=== PATIENT | male | born 1975 | race Caucasian/White ===

== ENCOUNTER 2017-01-13 18:02 | Emergency (ER) | payer SELFPAY ==
[2017-01-13] MEDS ORDERED: ZESTRIL PO ONE (18:46)
[2017-01-13] MEDS ORDERED: APRESOLINE PO ONE (18:46)
[2017-01-13] MEDS ORDERED: NORMODYNE PO ONE (18:47)
--- NOTE | 2017-01-13 18:47 | Emergency Department Report ---
ED General Adult HPI - General Chief complaint: High BP Stated complaint: BLADDER/BLOOD PRESSURE Time Seen by Provider: 01/13/17 18:45 Source: patient Mode of arrival: Ambulatory Limitations: No Limitations - History of Present Illness Initial comments: Patient is a 41-year-old male past medical history of hypertension who presents with urinary frequency. Patient states that he has been urinating a lot for the last couple days usually at nighttime. He denies that he is in any pain. He has been out of his high blood pressure medications for the past 2 weeks. He recently moved to [place]. Nothing makes his symptoms better sleeping makes his urinary urgency worse. It isn't associated with any known symptoms. He has no dysuria. No blood in his urine no nausea or vomiting. - Related Data Previous Rx's Medication Instructions Recorded Last Taken Type Carvedilol [Coreg] 25 mg PO BID #60 tablet 01/13/17 Unknown Rx Clonidine HCl [Catapres] 0.3 mg PO QDAY #30 tablet 01/13/17 Unknown Rx Lisinopril [Zestril] 40 mg PO QDAY #30 tablet 01/13/17 Unknown Rx Allergies Allergy/AdvReac Type Severity Reaction Status Date / Time No Known Allergies Allergy Verified 01/13/17 20:35 ED Review of Systems ROS: Stated complaint: BLADDER/BLOOD PRESSURE Other details as noted in HPI Constitutional: denies: chills, fever Eyes: denies: eye pain, eye discharge, vision change ENT: denies: ear pain, throat pain Respiratory: denies: cough, shortness of breath, wheezing Cardiovascular: denies: chest pain, palpitations Endocrine: no symptoms reported Gastrointestinal: denies: abdominal pain, nausea, diarrhea Genitourinary: urgency. denies: dysuria Musculoskeletal: denies: back pain, joint swelling, arthralgia Skin: denies: rash, lesions Neurological: denies: headache, weakness, paresthesias Psychiatric: denies: anxiety, depression Hematological/Lymphatic: denies: easy bleeding, easy bruising ED Past Medical Hx - Past Medical History Previous Medical History?: Yes Hx Hypertension: Yes Hx Congestive Heart Failure: Yes Hx Diabetes: Yes Hx Asthma: Yes - Surgical History Past Surgical History?: Yes Additional Surgical History: Right knee surgery - Social History Smoking Status: Never Smoker Substance Use Type: Alcohol, Prescribed - Medications Home Medications: Home Medications Medication Instructions Recorded Confirmed Last Taken Type Carvedilol [Coreg] 25 mg PO BID #60 tablet 01/13/17 Unknown Rx Clonidine HCl [Catapres] 0.3 mg PO QDAY #30 tablet 01/13/17 Unknown Rx Lisinopril [Zestril] 40 mg PO QDAY #30 tablet 01/13/17 Unknown Rx ED Physical Exam - General Limitations: No Limitations General appearance: alert, in no apparent distress - Head Head exam: Present: atraumatic, normocephalic - Eye Eye exam: Present: normal appearance - ENT ENT exam: Present: mucous membranes moist - Neck Neck exam: Present: normal inspection - Respiratory Respiratory exam: Present: normal lung sounds bilaterally. Absent: respiratory distress - Cardiovascular Cardiovascular Exam: Present: regular rate, normal rhythm. Absent: systolic murmur, diastolic murmur, rubs, gallop - GI/Abdominal GI/Abdominal exam: Present: soft, normal bowel sounds - Rectal Rectal exam: Present: deferred - Extremities Exam Extremities exam: Present: normal inspection - Back Exam Back exam: Present: normal inspection - Neurological Exam Neurological exam: Present: alert, oriented X3 - Psychiatric Psychiatric exam: Present: normal affect, normal mood - Skin Skin exam: Present: warm, dry, intact, normal color. Absent: rash ED Course Vital Signs 01/13/17 01/13/17 01/13/17 18:06 18:18 18:20 Temperature 98.7 F Pulse Rate 85 90 89 Respiratory 22 23 Rate Blood Pressure 229/149 234/155 Blood Pressure [Right] O2 Sat by Pulse 94 93 Oximetry 01/13/17 01/13/17 01/13/17 18:30 18:32 18:40 Temperature Pulse Rate 90 88 85 Respiratory 24 18 32 H Rate Blood Pressure 240/152 240/152 Blood Pressure 234/155 [Right] O2 Sat by Pulse 95 100 95 Oximetry 01/13/17 01/13/17 01/13/17 18:50 19:01 19:12 Temperature Pulse Rate 87 88 93 H Respiratory 25 H 23 Rate Blood Pressure 234/151 234/155 232/152 Blood Pressure [Right] O2 Sat by Pulse 92 94 Oximetry 01/13/17 01/13/17 01/13/17 19:20 19:29 19:30 Temperature Pulse Rate 84 90 84 Respiratory 27 H 20 35 H Rate Blood Pressure 216/142 230/140 Blood Pressure [Right] O2 Sat by Pulse 94 91 Oximetry 01/13/17 01/13/17 01/13/17 19:40 19:57 20:00 Temperature Pulse Rate 86 86 Respiratory 16 16 Rate Blood Pressure 234/151 234/151 219/146 Blood Pressure [Right] O2 Sat by Pulse 91 93 90 Oximetry 01/13/17 01/13/17 20:10 20:20 Temperature Pulse Rate 82 Respiratory 30 H Rate Blood Pressure 219/146 219/146 Blood Pressure [Right] O2 Sat by Pulse 95 95 Oximetry - Reevaluation(s) Reevaluation #1: 01/13/17 18:46 Patient refuses IV antihypertensive medication Reevaluation #2: 01/14/17 19:37 Patient states that he wants to leave. Discussed with patient that he will have to leave AMA. Due to him having hypertensive urgency. Discussed risks of leaving the hospital. Patient is competent and oriented and can make his own decisions. I we'll send patient home with refills of his oral antihypertensive medications and give him return precautions to come back to the ER. Also refer patient to Dr. Patel for outpatient follow-up. ED Medical Decision Making - Lab Data Result diagrams: 01/13/17 18:28 01/13/17 18:28 - EKG Data -: EKG Interpreted by Me - EKG Data 01/13/17 21:01 EKG shows normal sinus rhythm possible left atrial enlargement and incomplete right branch block and left anterior fascicular block and T-wave inversions in V4 V5 and V6. - Medical Decision Making Chief medical Diagnosis: Hypertensive urgency Differential diagnosis: Urinary tract infection, diabetes Urinalysis, CBC and CMP Patient has elevated creatinine he may have an acute kidney injury or it may be chronic due to his high blood pressure. Patient's blood pressure is 240/120. Gave patient oral antihypertensive medication due to patient refusing antihypertensive medication. Discussed with patient the need to control his blood pressure. He wants to leave AGAINST MEDICAL ADVICE. Patient signed form to leave AGAINST MEDICAL ADVICE. I gave patient additional verbal discharge instructions Critical care attestation.: If time is entered above; I have spent that time in minutes in the direct care of this critically ill patient, excluding procedure time. ED Disposition Clinical Impression: RONNA (acute kidney injury), Hypertensive urgency, Urinary frequency Disposition: -07 LEFT AGAINST MED ADVICE Is pt being admited?: No Does the pt Need Aspirin: No Condition: Stable Instructions: Hypertensive Crisis (ED), Hypertension (ED) Prescriptions: Carvedilol [Coreg] 25 mg PO BID #60 tablet Clonidine HCl [Catapres] 0.3 mg PO QDAY #30 tablet Lisinopril [Zestril] 40 mg PO QDAY #30 tablet Referrals: PRIMARY CARE, [Primary Care Provider] - 3-5 Days ARTEMIO PATEL MD [Staff Physician] - 3-5 Days Forms: AMA Form Time of Disposition: 20:48 Print Language: IRISH
[2017-01-13 18:48] LABS: Basophils % (Auto) 0.4 % (0.0-1.8); Eosinophils % (Auto) 2.4 % (0.0-4.3); Hematocrit 46.5 % (35.5-45.6); Hemoglobin 15.5 gm/dl (11.8-15.2); Mean Corpuscular HGB Conc 33 % (32-34); Mean Corpuscular Hemoglobin 29 pg (28-32); Mean Corpuscular Volume 87 fl (84-94); Platelet Count 183 K/mm3 (140-440); Red Blood Count 5.36 M/mm3 (3.65-5.03); Red Cell Distribution Width 14.2 % (13.2-15.2)
[2017-01-13 18:52] LABS: Bilirubin,Urine NEG (Negative); Blood,Urine SM (Negative); Ketones,Urine NEG (Negative); Leukocyte Esterase,Urine NEG (Negative); Mucus,Urine FEW /HPF; Nitrite,Urine NEG (Negative); Urobilinogen,Urine < 2.0 mg/dL (<2.0); WBC,Urine < 1.0 /HPF (0.0-6.0)
[2017-01-13 18:59] LABS: Protein,Urine >500 mg/dL (Negative)
[2017-01-13 19:07] LABS: Anion Gap 18 mmol/L; BUN/Creatinine Ratio 13.63; Blood Urea Nitrogen 30 mg/dL (9-20); Calcium 8.9 mg/dL (8.4-10.2); Carbon Dioxide 25 mmol/L (22-30); Chloride 102.3 mmol/L (98-107); Glucose 154 mg/dL (75-100); Sodium 141 mmol/L (137-145)
[2017-01-13] MEDS ORDERED: CATAPRES PO ONE (20:12)
--- NOTE | 2017-01-13 20:28 | XRay Report ---
FINAL REPORT EXAM: XR CHEST ROUTINE 2V HISTORY: Shortness of breath COMPARISON: None available. FINDINGS:: Frontal and lateral views of the chest obtained. Heart normal in size. Patchy opacities mid to lower lungs concerning for pneumonia versus edema. Pneumonia is favored. No gross effusion or pneumothorax. IMPRESSION:: Findings concerning for bilateral pneumonia more pronounced on the right.
[2017-01-13 20:39] VITALS: BP 219/146
== END 2017-01-13 21:09 | disposition left against medical advice (07) ==
LOC: ED 18:02
DX: N17.9 Acute kidney failure, unspecified (principal); I10 Essential (primary) hypertension; R35.0 Frequency of micturition; E11.9 Type 2 diabetes mellitus without complications; J45.909 Unspecified asthma, uncomplicated
CPT/HCPCS: 36415; 71020; 80048; 81001; 82962; 84484; 85025; 93005; 93010